=== PATIENT | female | born 1975 | race Caucasian/White ===

== ENCOUNTER → 2023-05-06 13:57 | Outpatient (REF) | payer BC, SELFPAY | LOC: HWEVLT 13:57 | PROVIDERS: ATTENDING PHYSICIAN Radiology Vascular & Interventional Radiology | DX: I83.893 Varicose veins of bilateral lower extremities with other complications (principal) | CPT/HCPCS: 93970 ==

== ENCOUNTER → 2024-05-27 08:35 | Outpatient (REF) | payer BC, SELFPAY | LOC: DHSLP 08:35 | PROVIDERS: ATTENDING PHYSICIAN Internal Medicine Critical Care Medicine | DX: G47.30 Sleep apnea, unspecified (principal); R06.83 Snoring | CPT/HCPCS: 95800 ==